=== PATIENT | male | born 1965 | race Caucasian/White ===

== ENCOUNTER 2020-03-20 14:29 | Emergency (ER) | payer BC, OTHER ==
[~2020-03-20] VITALS: Ht 177.8 cm; Wt 145.1 kg
[2020-03-20] MEDS ORDERED: ATOR10TA PO (14:39)
[2020-03-20] MEDS ORDERED: METF-442 PO (14:39)
[2020-03-20] MEDS ORDERED: INSU100V37 SQ (14:39)
[2020-03-20] MEDS ORDERED: HYDROMORPHONE 1 MG/1 ML DISP.SYRIN ONE (14:44)
[2020-03-20] MEDS ORDERED: ONDANSETRON 4 MG/2 ML VIAL ONE (14:44)
[2020-03-20] MEDS ORDERED: KETOROLAC TROMETHAMINE 30 MG INJ ONE (14:45)
[2020-03-20] MEDS ORDERED: KETOROLAC TROMETHAMINE 15 MG INJ IVP ONE (14:45)
[2020-03-20] MEDS ORDERED: HYDROMORPHONE 1 MG/1 ML DISP.SYRIN IV ONE (14:45)
[2020-03-20] MEDS ORDERED: IV NORMAL SALINE 1000 ML BAG IV ONE (14:45)
[2020-03-20 15:12] LABS: CREATININE 1.4 mg/dL (0.6-1.3); POTASSIUM 4.1 mmol/L (3.5-5.1)
[2020-03-20 15:18] LABS: BILIRUBIN,DIRECT 0.2 mg/dL (0.0-0.2); BILIRUBIN,TOTAL 0.6 mg/dL (0.2-1.0); TOTAL PROTEIN, SERUM 8.1 g/dL (6.4-8.2)
[2020-03-20 15:35] LABS: BASOPHILS # (AUTO) 0.1 K/uL (0.0-8.0); BASOPHILS % (AUTO) 0.6 % (0.0-2.0); EOSINOPHILS % (AUTO) 0.3 % (0.0-7.0); HEMATOCRIT 45.4 % (36.7-47.1); HEMOGLOBIN 14.3 g/dL (12.5-16.3); LYMPHOCYTES % (AUTO) 7.4 % (20.5-51.5); MEAN CORPUSCULAR HEMOGLOBIN 22.5 uug (23.8-33.4); MEAN CORPUSCULAR HGB CONC 32 g/dL (32.5-36.3); MEAN CORPUSCULAR VOLUME 71.4 fL (73.0-96.2); MONOCYTES # (AUTO) 1.4 K/uL (2.0-10.0); MONOCYTES % (AUTO) 10.5 % (0.0-11.0); NEUTROPHILS # (AUTO) 11.1 K/uL (1.8-8.9); NEUTROPHILS % (AUTO) 81.2 % (38.5-71.5); PLATELET COUNT (AUTO) 178 K/uL (152-348); RED BLOOD CELL COUNT(AUTO) 6.36 MIL/uL (4.06-5.63); WHITE BLOOD COUNT (AUTO) 13.6 K/uL (3.6-10.2)
[2020-03-20 16:05] LABS: *BLOOD, URINE 3+ (NEGATIVE); *CLARITY,URINE CLOUDY (CLEAR); *COLOR,URINE Brown (YELLOW); *KETONES,URINE TRACE (NEGATIVE); *UROBILINOGEN,URINE 0.2 E.U./dl (NORMAL); LEUKOCYTE ESTERASE ,URINE NEGATIVE (NEGATIVE); NITRITE, URINE NEGATIVE (NEGATIVE); PH,URINE 5.5 (5.0-8.0)
[2020-03-20 16:10] LABS: UGLUCOSE 2+ (NEGATIVE)
[2020-03-20 16:11] LABS: *BILIRUBIN,URIN 1+ (NEGATIVE)
[2020-03-20] MEDS ORDERED: CIPROFLOXACIN HCL 250 MG TABLET PO ONE (16:30)
[2020-03-20] MEDS ORDERED: CIPROFLOXACIN HCL 250 MG TABLET ONE (16:57)
--- NOTE | 2020-03-20 16:57 | NUR ---
IV removed. Catheter intact and site benign. Pressure and 4x4 gauze applied to site. No bleeding noted. Patient discharged to home in stable condition. Written and verbal after care instructions given. Patient verbalizes understanding of instructions. Stressed follow up with his primary doctor or return to ER for worsening s/s. Copies of all the tests' results were given to patient.
[2020-03-20 19:51] LABS: BACTERIA,URINE MODERATE /HPF (NONE SEEN); RBC,URINE 20-50 /HPF (0-3); SQUAMOUS EPITHELIAL CELL,UR FEW /HPF (NONE SEEN)
== END 2020-03-20 16:57 | disposition home or self-care (01) ==
LOC: ER 14:29
DX: N20.1 Calculus of ureter (principal); K59.00 Constipation, unspecified; E66.01 Morbid (severe) obesity due to excess calories; Z68.42 Body mass index [BMI] 45.0-49.9, adult; N17.9 Acute kidney failure, unspecified; D72.829 Elevated white blood cell count, unspecified; R00.0 Tachycardia, unspecified; E11.65 Type 2 diabetes mellitus with hyperglycemia; K21.9 Gastro-esophageal reflux disease without esophagitis; Z79.4 Long term (current) use of insulin; M10.9 Gout, unspecified; E78.5 Hyperlipidemia, unspecified; I10 Essential (primary) hypertension
CPT/HCPCS: 36415; 74176; 80048; 80076; 81001; 83690; 84484; 85025; 93005; 96361; 96374; 96375; 99285; J1170; J1885; 70030-TC; A4663; J2405; J7030

== ENCOUNTER 2022-02-21 02:31 | Emergency (ER) | payer BC ==
[~2022-02-21] VITALS: Ht 177.8 cm; Wt 145.1 kg
[~2022-02-21 02:31] MED LIST: ATOR10TA PO; INSU100V37 SQ; METF-442 PO
--- NOTE | 2022-02-21 02:40 | NUR ---
pt in room 3 c/o right foot pain.
[2022-02-21] MEDS ORDERED: KETOROLAC TROMETHAMINE 30 MG INJ ONE (02:44)
[2022-02-21] MEDS ORDERED: KETOROLAC TROMETHAMINE 30 MG INJ IM ONE (02:45)
--- NOTE | 2022-02-21 02:54 | NUR ---
Patient discharged to home in stable condition. Written and verbal after care instructions given. Patient verbalizes understanding of instructions. Stressed follow up or return to ER for worsening s/s.
[2022-02-21 02:55] VITALS: BP 140/80
== END 2022-02-21 02:55 | disposition home or self-care (01) ==
LOC: ER 02:39
DX: M79.671 Pain in right foot (principal); Z86.39 Personal history of other endocrine, nutritional and metabolic disease; E11.9 Type 2 diabetes mellitus without complications; Z79.84 Long term (current) use of oral hypoglycemic drugs; Z79.4 Long term (current) use of insulin; E66.01 Morbid (severe) obesity due to excess calories; Z68.42 Body mass index [BMI] 45.0-49.9, adult
CPT/HCPCS: 99283; 96372; J1885; A4663